=== PATIENT | female | born 1965 | race Caucasian/White ===

== ENCOUNTER 2018-03-23 05:58 | Emergency (ER) | payer MEDICAID ==
[~2018-03-23] VITALS: Ht 162.6 cm; Wt 70.8 kg
[~2018-03-23 05:58] MED LIST: PHEN97.22 PO
[2018-03-23 06:06] VITALS: BP 155/94
[2018-03-23] MEDS ORDERED: PHEN97.22 PO (08:43)
== END 2018-03-23 08:48 | disposition home or self-care (01) ==
LOC: ER 05:58
DX: Z76.0 Encounter for issue of repeat prescription (principal); I10 Essential (primary) hypertension; F17.200 Nicotine dependence, unspecified, uncomplicated
CPT/HCPCS: 99283